=== PATIENT | female | born 1990 | race Caucasian/White ===

== ENCOUNTER 2016-12-25 17:59 | Emergency (ER) | payer SELFPAY | END 2016-12-25 21:40 | disposition home or self-care (01) | LOC: ER 17:59 | DX: R07.2 Precordial pain (principal); R07.89 Other chest pain; J02.0 Streptococcal pharyngitis; B95.5 Unspecified streptococcus as the cause of diseases classified elsewhere; F17.210 Nicotine dependence, cigarettes, uncomplicated | CPT/HCPCS: 71020; 81025; 87804; 87880; 93005 ==